=== PATIENT | male | born 1965 | race Caucasian/White ===

== ENCOUNTER 2017-10-14 18:02 | Emergency (ER) | payer OTHER ==
[~2017-10-14] VITALS: Ht 170.2 cm; Wt 100.7 kg
[2017-10-14 18:08] VITALS: Ht 170.2 cm; Wt 100.7 kg
[2017-10-14 22:19] VITALS: BP 116/74
== END 2017-10-14 22:19 | disposition home or self-care (01) ==
LOC: ED 18:02
DX: M54.42 Lumbago with sciatica, left side (principal); I10 Essential (primary) hypertension; E11.9 Type 2 diabetes mellitus without complications
CPT/HCPCS: J1885

== ENCOUNTER 2019-07-31 03:23 | Emergency (ER) | payer OTHER ==
[~2019-07-31] VITALS: Ht 167.6 cm; Wt 97.2 kg
[2019-07-31 03:26] VITALS: Ht 167.6 cm; Wt 97.2 kg
[2019-07-31 04:21] VITALS: BP 113/74
== END 2019-07-31 04:21 | disposition home or self-care (01) ==
LOC: ED 03:23
DX: M54.5 Low back pain (principal); R50.9 Fever, unspecified; R30.0 Dysuria; I10 Essential (primary) hypertension; E11.9 Type 2 diabetes mellitus without complications; Z98.890 Other specified postprocedural states
CPT/HCPCS: J2270